=== PATIENT | female | born 1995 | race Caucasian/White ===

== ENCOUNTER 2017-02-17 17:02 | Emergency (ER) | payer SELFPAY ==
[2017-02-17] MEDS ORDERED: Acetaminophen TAB* 325 MG PO ONE (17:47)
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
[2017-02-17 19:04] LABS: Hematocrit 40 % (35-47); Hemoglobin 13.6 g/dl (12.0-16.0); Mean Corpuscular HGB Conc 34 g/dl (31-36); Mean Corpuscular Hemoglobin 30 pg (27-31); Mean Corpuscular Volume 88 fL (80-97); Mean Platelet Volume 8 um3 (7.4-10.4); Red Blood Count 4.52 10^6/ul (4.0-5.4); Red Cell Distribution Width 13 % (10.5-15); White Blood Count 6.2 10^3/ul (3.5-10.8)
[2017-02-17 19:16] LABS: ALT 14 U/L (7-52); AST 22 U/L (13-39); Albumin 4.4 g/dL (3.2-5.2); Alkaline Phosphatase 42 U/L (34-104); Anion Gap 10 mmol/L (2-11); BUN/Creatinine Ratio 16.7 (8-20); Blood Urea Nitrogen 11 mg/dL (6-24); CO2 Carbon Dioxide 24 mmol/L (22-32); Calcium 10.3 mg/dL (8.6-10.3); Chloride 103 mmol/L (101-111); EGFR African American 146.8 (>60); EGFR Non-African American 114.2 (>60); Globulin 2.9 g/dL (2-4); Glucose 93 mg/dL (70-100); Potassium 3.7 mmol/L (3.5-5.0); Sodium 137 mmol/L (133-145); Total Protein 7.3 g/dL (6.4-8.9)
[2017-02-17] MEDS ORDERED: Iohexol 300* (CONTRAST) 10 ML SDV IV ONE (19:40)
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
[2017-02-17 21:13] VITALS: BP 113/75
== END 2017-02-17 20:41 | disposition home or self-care (01) ==
LOC: ED 17:02
DX: S09.90XA Unspecified injury of head, initial encounter (principal); M25.552 Pain in left hip; M25.551 Pain in right hip; V43.52XA Car driver injured in collision with other type car in traffic accident, initial encounter; Y93.9 Activity, unspecified; Y92.9 Unspecified place or not applicable; M54.2 Cervicalgia
CPT/HCPCS: 36415; 70450; 70486; 71260; 72125; 74177; 80053; 84702; 85025; 99283; A9270-GY; Q9967

== ENCOUNTER 2018-11-01 17:50 | Inpatient (IN) | payer OTHER ==
[2018-11-01] MEDS ORDERED: NS 0.9% 1000 ML** 1,000 ML IV.FLUID IV ONE (18:13)
--- NOTE | 2018-11-01 18:21 | ED ---
Lower Extremity - HPI Summary HPI Summary: 22-year-old female presents with the right ankle swelling pain for the past couple days. She states that she has a history of right ankle fracture that required hardware placement in [place] in May. She states that 2 weeks ago her roommates cat ended up biting her ankle. cat is up-to-date immunizations. Her tetanus is up-to-date. States that past couple days has had increased swelling around this area. No fevers or chills. States is having increasing pain and is starting to walk with a limp. Has not taking for her symptoms. - History of Current Complaint Chief Complaint: EDExtremityLower Stated Complaint: RT ANKLE SWELLING PER PT Time Seen by Provider: 11/01/18 18:05 Pain Intensity: 0 - Allergies/Home Medications Allergies/Adverse Reactions: Allergies Allergy/AdvReac Type Severity Reaction Status Date / Time No Known Allergies Allergy Verified 11/01/18 17:52 Home Medications: Home Medications ALPRAZolam TAB* [Xanax TAB*] 0.25 mg PO Q8H PRN 11/01/18 [History Confirmed ] Dextroamphetamine/Amphetamine [Dextroamp-Amphet ER 10 mg Cap] 10 mg PO DAILY [History Confirmed 11/01/18] Norgestimate-Ethinyl Estradiol [Wsn-Ul-Ldsqnmklr Tablet] 1 each PO DAILY [History Confirmed 11/01/18] Sertraline* [Zoloft*] 100 mg PO DAILY 11/01/18 [History Confirmed 11/01/18] PMH/Surg Hx/FS Hx/Imm Hx Endocrine/Hematology History: Denies: Hx Anticoagulant Therapy Musculoskeletal History: Reports: Other Musculoskeletal History - labrum issue Psychiatric History: Denies: Hx Eating Disorder, Hx of Violent Episodes Against Others - Surgical History Surgery Procedure, Year, and Place: TONSILECTOMY, INGUINAL HERNIA REPAIR, ENDOSCOPY Infectious Disease History: No Infectious Disease History: Denies: Traveled Outside the US in Last 30 Days - Social History Alcohol Use: Weekly Substance Use Type: Reports: None Smoking Status (MU): Never Smoked Tobacco Review of Systems Negative: Fever Negative: Chest Pain Negative: Shortness Of Breath Positive: Myalgia - right ankle Positive: Rash All Other Systems Reviewed And Are Negative: Yes Physical Exam Triage Information Reviewed: Yes Vital Signs On Initial Exam: Initial Vitals Temp Pulse Resp BP Pulse Ox 99.8 F 86 15 135/79 100 11/01/18 17:52 11/01/18 17:52 11/01/18 17:52 11/01/18 17:52 11/01/18 17:52 Vital Signs Reviewed: Yes Appearance: Positive: Well-Appearing Skin: Positive: Warm, Dry, Other - scar to right ankle with surrouding erythema around such Head/Face: Positive: Normal Head/Face Inspection Eyes: Positive: Normal, Conjunctiva Clear ENT: Positive: Pharynx normal Respiratory/Lung Sounds: Positive: Clear to Auscultation, Breath Sounds Present Cardiovascular: Positive: Normal, RRR Musculoskeletal: Positive: Strength/ROM Intact - right ankle Neurological: Positive: Normal Psychiatric: Positive: Normal Diagnostics - Vital Signs Vital Signs Temp Pulse Resp BP Pulse Ox 11/01/18 17:52 99.8 F 86 15 135/79 100 - Laboratory Result Diagrams: 11/01/18 18:39 11/01/18 18:39 Lab Statement: Any lab studies that have been ordered have been reviewed, and results considered in the medical decision making process. - Radiology ankle Radiology Interpretation Completed By: ED Physician Summary of Radiographic Findings: hardware in place - Ultrasound No standard instances Ultrasound Interpretation Completed By: Radiologist Summary of Ultrasound Findings: IMPRESSION: Subcutaneous seroma, evolving hematoma, or abscess overlying the distal lower. leg instrumentation. Consider aspiration. Lower Extremity Course/Dx - Course Course Of Treatment: 22-year-old female presents with the right ankle swelling pain for the past couple days. She states that she has a history of right ankle fracture that required hardware placement in [place] in May. She states that 2 weeks ago her roommates cat ended up biting her ankle. cat is up- to-date immunizations. Her tetanus is up-to-date. States that past couple days has had increased swelling around this area. No fevers or chills. States is having increasing pain and is starting to walk with a limp. Has not taking for her symptoms. On exam has 6 cm scar to right ankle with 3 cm of erythema around the ankle with edema present. has full ROM. xray read by me as normal joint effusion. discussed with dr iyer and will get ultrasound. ultrasound shows fluid collection. spoke with dr iyer who will admit patient for possible or tomorrow. - Diagnoses Differential Diagnosis/HQI/PQRI: Positive: Cellulitis, Infection, Septic Arthritis Provider Diagnoses: Cat bite, Infected orthopedic implant, Cellulitis Discharge - Sign-Out/Discharge Documenting (check all that apply): Patient Departure - Discharge Plan Condition: Stable Disposition: ADMITTED TO [facility] - Billing Disposition and Condition Condition: STABLE Disposition: Admitted to [facility]
[2018-11-01 18:36] LABS: Urine Appearance Clear; Urine Bilirubin Negative (Negative); Urine Blood Negative (Negative); Urine Color Straw; Urine Glucose Negative (Negative); Urine Ketones Negative (Negative); Urine Nitrite Negative (Negative); Urine Protein Negative (Negative); Urine Specific Gravity 1.003 (1.010-1.030); Urine Urobilinogen Negative (Negative)
--- NOTE | 2018-11-01 18:49 | ED ---
Progress - Progress Note Progress Note: This patient is a 22 year old F presenting to [facility] with a chief complaint of cat bite since 2 weeks ago over her lateral incision on her right nkle. She had checked out at [facility], and she was instructed to come to [facility]. Pt had surgery on her broken right ankle May 2018. Patient reports progressive swelling and pain with walking. No fever, sweats, or chills. There is mild fluctuates overwinding the incision and warmth. Ankle range of motion is intact. Recommended inflammatory response and spoke with ortho to consider admission for IV antibiotics vs. washout vs. close outpatient followup. I do have concern as it is the weekend. - EKG/XRAY/CT XRAY: ankle - Right ankle Xray Comments: Right ankle x-ray: no obvious joint effusion, no fracture visualized. Course/Dx - Diagnoses Provider Diagnoses: Cat bite, Infected orthopedic implant Discharge - Sign-Out/Discharge Documenting (check all that apply): Sign-Out Patient Signing out patient TO: Lillian Sullivan - Pending discharge plan - Discharge Plan Referrals: Non Staff,Doctor [Medical Doctor] - - Attestation Statements Document Initiated by Scribe: Yes Documenting Scribe: Orestes Marie Provider For Whom Scribe is Documenting (Include Credential): Alli Maya MD Scribe Attestation: Orestes Ko, scribed for Alli Maya MD on 11/01/18 at 2952. Status of Scribe Document: Ready
[2018-11-01 18:55] LABS: ABS Eosinophils 0.2 10^3/ul (0-0.6); ABS Lymphocytes 2.1 10^3/ul (1.0-4.8); ABS Monocytes 0.5 10^3/ul (0-0.8); ABS Neutrophils 3.8 10^3/ul (1.5-7.7); Eosinophil % 2.6 %; Hematocrit 34 % (35-47); Hemoglobin 11.1 g/dL (12.0-16.0); Lymphocyte % 31.2 %; Mean Corpuscular HGB Conc 33 g/dL (31-36); Mean Corpuscular Hemoglobin 27 pg (27-31); Mean Corpuscular Volume 83 fL (80-97); Mean Platelet Volume 7.3 fL (7.4-10.4); Nucleated Red Blood Cells % 0.1; Platelet Count 342 10^3/uL (150-450); Red Blood Count 4.11 10^6 /uL (3.70-4.87); Red Cell Distribution Width 15 % (10.5-15); White Blood Count 6.6 10^3/uL (3.5-10.8)
[2018-11-01 19:03] LABS: Activated Partial Thrombo Time 27.5 seconds (26.0-36.3); INR 1.04 (0.82-1.09)
[2018-11-01] MEDS ORDERED: Piperacillin/Tazobac ADVAN(*) 3.375 GM in NS 0.9% 100 ML* 100 ML IVPB ONE (19:07)
[2018-11-01] MEDS ORDERED: Vancomycin(*) 1,000 MG in NS 0.9% 250 ML* 250 ML IVPB ONE (19:07)
[2018-11-01 19:11] LABS: Albumin 4.4 g/dL (3.2-5.2); Albumin/Globulin Ratio 1.4 (1-3); BUN/Creatinine Ratio 14.3 (8-20); C Reactive Protein 51.34 mg/L (<8.01); Calcium 10.1 mg/dL (8.6-10.3); EGFR African American 144.3 (>60); EGFR Non-African American 119.3 (>60); Globulin 3.2 g/dL (2-4); Potassium 3.7 mmol/L (3.5-5.0); Total Bilirubin 0.2 mg/dL (0.2-1.0); Total Protein 7.6 g/dL (6.4-8.9)
[2018-11-01] MEDS ORDERED: oxyCODONE TAB* 5 MG TAB PO PRN (21:26)
[2018-11-01] MEDS ORDERED: Acetaminophen TAB* 325 MG PO PRN (21:27)
[2018-11-01 21:33] LABS: Erythrocyte Sed Rate 38 mm/Hr (0-19)
[2018-11-01] MEDS: ceFAZolin 2 GM in NS PREMIX(*) 2 GM/100 ML BAG IVPB SCH (23:46)
--- NOTE | 2018-11-02 00:06 | HP ---
HISTORY AND PHYSICAL: DATE OF ADMISSION: 10/22/18 CHIEF COMPLAINT: Right ankle pain and swelling. HISTORY OF PRESENT ILLNESS: Laurence is 22 years old. She had a fracture in late May in [place]. She flew home and had it treated surgically in [place] in late May. The plate is quite prominent. She had scheduled with her surgeon in [place] to have it removed in November. She comes in today because it has gotten more swollen and even more painful. She states she might have had a fall, but she cannot really remember the fall, maybe one night when she was out with some friends, she said she fell quite a bit. She also got a cat bite 2 weeks ago near the lateral incision near the ankle, where she has noticed increased swelling, a little bit of area where she is concerned that it might have some fluid underneath the incision, so she comes in now. She denies any fevers or chills or systemic symptoms. X-rays and ultrasound have been done in the ER. PAST MEDICAL HISTORY: Essentially negative. PAST SURGICAL HISTORY: She does have a history of tonsillectomy and inguinal hernia repair and endoscopy. MEDICATIONS: 1. Xanax. 2. control. 3. Zoloft. ALLERGIES: No known drug allergies. SOCIAL HISTORY: She does not smoke. She uses alcohol. 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 REVIEW OF SYSTEMS: As above. Positive for some right ankle swelling. There has been increased pain and discomfort, particularly with ambulation. Otherwise , it is negative. PHYSICAL EXAMINATION GENERAL: Awake and alert, very pleasant. VITAL SIGNS: Temperature is 99.8, pulse 86, respiratory rate 15, blood pressure 135/79, saturation 100% on room air. SKIN: Intact. There is a little bit of warmth over the lateral ankle incision on the skin, but not a lot of erythema. LUNGS: Normal respiratory effort. CARDIOVASCULAR: Feet is warm and well-perfused, pulses are palpable. ABDOMEN: Soft, nondistended. MUSCULOSKELETAL: She has a lateral incision over the distal fibula. Plate is palpable. There is a quarter-sized area of fluctuance in the central portion of the incision without any drainage. It is tender. DIAGNOSTIC STUDIES/LAB DATA: X-rays of the right ankle and ultrasound of the right ankle were reviewed. There is a distal fibula plate and screws. The fracture looks healed. There is a fluid collection seen on the ultrasound. The patient's white blood cell count is 6.6. The ESR is 38 and the CRP is 51.34. Labs are otherwise unremarkable. IMPRESSION: Retained right distal fibular plate that had a fluid collection around it that is new in the absence of any trauma and this is very concerning for infection. PLAN/RECOMMENDATIONS: I think the safest thing to do here is to just remove the plate due to the new fluid collection around previously, although somewhat prominent, but otherwise well-healed incision as well as increasing pain. It is all very concerning for infection, so I think we should just remove the plate as the bone looks healed on x-ray. I will get some cultures when we do the procedure tomorrow. The plan will be for removal of plate and screws from the right ankle distal fibula and then do an I and D and I will do some cultures as well. She will be admitted and kept on cefazolin overnight. I did attempt to aspirate that little bit of fluid collection. I just did not really get anything, I got a little bit of blood, but that was about it. [id number]/CPS #: [id number] KENDRA
[2018-11-02] MEDS: Ibuprofen TAB* 600 MG PO PRN ×2 (00:19→16:31)
[2018-11-02] MEDS: Famotidine TAB* 20 MG PO SCH ×2 (00:19→08:43)
[2018-11-02] MEDS: ceFAZolin 2 GM in NS PREMIX(*) 2 GM/100 ML BAG IVPB SCH (05:39)
[2018-11-02] MEDS ORDERED: Famotidine IV* 10 MG/ML 2 ML (20 mg) ONE (07:45)
[2018-11-02] MEDS ORDERED: Dexamethasone IV* 4 MG/ML 1 ML (4 MG) ONE (07:46)
[2018-11-02] MEDS ORDERED: Midazolam* 1 MG/ML 2 ML VIAL (2 MG) ONE (07:46)
[2018-11-02] MEDS ORDERED: Ondansetron INJ* 2 MG/ML VIAL ONE (07:46)
[2018-11-02] MEDS ORDERED: Ketorolac INJ* 30 MG/ML 1 ML VIAL ONE (07:46)
[2018-11-02] MEDS ORDERED: fentaNYL* 50 MCG/ML 2 ML VIAL (100 MCG VIAL) ONE ×3 (07:46→10:47)
[2018-11-02] MEDS ORDERED: Propofol* 10 MG/ML 20 ML BTL ONE (07:46)
[2018-11-02] MEDS ORDERED: Lidocaine 2% PF * 5 ML VIAL ONE (07:47)
[2018-11-02] MEDS ORDERED: Bupivacaine 0.25% SDV PF* 10 ML VIAL INJ ONE (07:55)
[2018-11-02] MEDS ORDERED: Bupivacaine 0.25% EPI 200,000* 30 ML SDV ONE (07:55)
[2018-11-02] MEDS ORDERED: EPHEDrine (Pressors)* 50 MG/ML VIAL ONE (08:46)
[2018-11-02] MEDS ORDERED: ceFAZolin VIAL(*) VIAL ONE (08:53)
[2018-11-02] MEDS ORDERED: ceFAZolin 2 GM PREMIX in ORs 2 GM/50 ML BAG IVPB ONE (08:55)
[2018-11-02] MEDS ORDERED: Naloxone* 0.4 MG/ML 1 ML VIAL IV PRN (09:14)
[2018-11-02] MEDS ORDERED: DiMENhydriNATE IV* 50 MG/ML VIAL IV PUSH PRN (09:14)
[2018-11-02] MEDS ORDERED: fentaNYL* 50 MCG/ML 2 ML VIAL (100 MCG VIAL) IV PRN (09:14)
--- NOTE | 2018-11-02 10:08 | PN ---
Progress Note - Progress Note Date of Service: 11/02/18 Note: I&D and removal of hardware now done. Purulence encountered. Will start IV vancomycin until cultures return. HV likely in until Sunday. Possibly home tonight if we can get cultures back. She has graduation from college tomorrow and she is adamant that she would like to attend tomorrow morning. I will do everything that I think is medically safe to facilitate this but she understands it may not be possible.
[2018-11-02] MEDS ORDERED: Vancomycin per Pharmacy* NOTE FOLLOW UP PRN (10:27)
[2018-11-02] MEDS ORDERED: oxyCODONE TAB* 5 MG TAB ONE (10:51)
--- NOTE | 2018-11-02 10:56 | OP ---
OPERATIVE REPORT: DATE OF OPERATION: 11/02/18 DATE OF : 89 SURGEON: Phan Huang MD SCHEDULER MAINTENANCE: None. ANESTHESIOLOGIST: Dr. Interiano. ANESTHESIA: General. PRE-OP DIAGNOSIS: Right infected distal fibular plate and screws. POST-OP DIAGNOSIS: Right infected distal fibular plate and screws. OPERATIVE PROCEDURE: 1. Irrigation and debridement of right ankle, infected surgical wound. 2. Removal of distal fibular plate and screws. INDICATIONS: Please note that the I and D of the infected surgical wound is a little bit more complicated. The wound is 6 months' old and went down all the way to the bone. Laurence had the distal fibular fixed back on late May 2018 in [place]. She had been walking, she had a lot of sensitivity around the edge of the wound. Plate was a bit prominent distally and it was very palpable under the skin. She had some sort of a cat bite a couple of weeks ago. Ultimately, a few days ago it started to get a much more painful. She came to the emergency room. Inflammatory markers were up. She had a fluid collection underneath the wound. I told her we had to remove the plate and screws and do an I and D. She understood and wished to proceed. She understands there is a risk of refracture , risk of osteomyelitis requiring additional surgery, and prolonged course of antibiotics. ESTIMATED BLOOD LOSS: 5 mL. COMPLICATIONS: None. FINDINGS: See above and below. DESCRIPTION OF PROCEDURE: Laurence was seen in the preoperative holding area. The correct site, side, and procedure were identified. We came back to the operating room where the leg was positioned with a bump underneath the hip and then elevated on the bone foam. It was prepped and draped with a Betadine prep. Time-out was performed. The leg was exsanguinated with the Esmarch and the tourniquet was inflated to 250 mmHg. I reopened her prior lateral ankle wound, pus was encountered. I went ahead and cultured the purulence. The purulence was down around the plate. All of that was cultured a couple of times. I then removed the plate, there were 5 screws and 1 plate. These all came out uneventfully. The screws were loose for the most part. The lag screw was removed with this as well. I curetted out all of the diseased-looking tissue. I curetted out the screw tracts and got everything looking completely clean. I then irrigated out the wound with a couple of liters of saline. At this point, everything was looking very good. I put some retention sutures in trauma-mattress type fashion to approximate the skin edges and take the tension off the skin edges and then closed the remainder of the wound loosely with 3-0 nylon. The Hemovac drain was placed deep and care was taken not to sew in the drain. The wound was dressed with Xeroform, 4 x 4s, sterile Webril, and then a short-leg splint was applied. Hemovac drain was hooked up, tourniquet was deflated. She was take to the recovery room in stable condition. [id number]/CPS #: [id number] KENDRA
[2018-11-02] MEDS ORDERED: Vancomycin 1500 MG IV - x ONCE IVPB ONE ×2 (11:00)
[2018-11-02] MEDS ORDERED: Vancomycin(*) 1,250 MG IV x ONCE IVPB ONE ×2 (17:00)
[2018-11-02] MEDS ORDERED: Sulfamethox/Trimethoprim DS 800/160* TAB PO ONE (18:00)
[2018-11-02 18:35] VITALS: BP 127/61
--- NOTE | 2018-11-02 22:31 | PN ---
Progress Note - Progress Note Date of Service: 11/02/18 Note: The initial results of the cultures show MSSA. We will follow up sensitivities. She is to follow up with Dr. Zhou next week and with Dr. Ritchie on Sunday for drain removal. Both of these physicians are aware and appropriate home antibiotics was discussed with Dr. Zhou prior to discharge.
--- NOTE | 2018-11-03 10:33 | DS ---
DISCHARGE SUMMARY: DATE OF ADMISSION: 11/01/18 DATE OF DISCHARGE: 11/02/18 ATTENDING PHYSICIAN: Dr. Phan Huang.* (DICTATED BY JOSE ORTIZ) ADMISSION DIAGNOSIS: Right infected distal fibular plate and screws. DISCHARGE DIAGNOSIS: Right infected distal fibular plate and screws. SURGERY PERFORMED: Irrigation and debridement, right ankle infected surgical wound and removal of distal fibular plate and screws. HOSPITAL COURSE: The patient is a 22-year-old female, [employer] student who underwent open reduction internal fixation of a distal fibular fracture in May 2018 in [place]. She noticed increased swelling and pain with prominence of her hardware palpable under her skin. There is question about a cat bite a few weeks ago as well and ultimately she noticed increased pain, swelling with noted fluid collection in this region. She presented to the ER and was seen by Dr. Huang who recommended removal of the plate and screws with an irrigation and debridement procedure. She was admitted and taken to the operating room under his care on 11/02/18 for the aforementioned procedure. She tolerated the procedure and left the operating room in stable condition. Postoperatively, she had no postoperative complications. Her cultures were reviewed and came back as MSSA. Dr. Zhuo was contacted regarding antibiotic treatment. She had 2 doses of IV vancomycin inhouse and then was transitioned to Bactrim DS b.i.d. for 10 days at discharge. It was felt she was medically and orthopedically stable for discharge as she wanted to attend her college graduation ceremony 11/03/18. It was agreed that she could participate with this with the oral antibiotics on board. She also was given a prescription of 81 mg of aspirin to take twice daily for 2 weeks. Oxycodone prescribed for pain. She may bear weight as tolerated on the right lower extremity. Her Hemovac drain is retained and she will follow up in the office with Dr. Anaya on Sunday, for removal of the drain. JOSE ORTIZ [id number]/[facility] #: [id number] [facility]ITALTiki
== END 2018-11-02 18:30 | disposition home or self-care (01) | DRG 496 ==
LOC: ED 17:50 → SSU 21:21
PROVIDERS: ADMIT Orthopaedic Surgery Hand Surgery; ATTEND Orthopaedic Surgery Hand Surgery
PROC: 0QPJ04Z Removal of Internal Fixation Device from Right Fibula, Open Approach (ICD-10-PCS; principal; 2018-11-02 08:00)
DX: T84.624A Infection and inflammatory reaction due to internal fixation device of right fibula, initial encounter (principal); M86.8X6 Other osteomyelitis, lower leg; L03.115 Cellulitis of right lower limb; Y79.3 Surgical instruments, materials and orthopedic devices (including sutures) associated with adverse incidents; W19.XXXA Unspecified fall, initial encounter; B95.61 Methicillin susceptible Staphylococcus aureus infection as the cause of diseases classified elsewhere; K21.9 Gastro-esophageal reflux disease without esophagitis; F41.9 Anxiety disorder, unspecified; Y92.9 Unspecified place or not applicable; Z72.89 Other problems related to lifestyle; W55.01XA Bitten by cat, initial encounter
CPT/HCPCS: 36415; 80053; 81003; 83605; 85025; 85610; 85652; 85730; 86140; 86618; 87040; 87070; 87073; 87077; 87186; 87205; 87640; 87641; 88300; 99285; A9270-GY; J0690; J1100; J1885; J2250; J2405; J2543; J2704; J3010; J3370; J3490